=== PATIENT | male | born 1985 | race Two or more races ===

== ENCOUNTER 2022-05-26 00:56 | Emergency (ER) | payer OTHER ==
[~2022-05-26] VITALS: Ht 188 cm; Wt 99.8 kg
[2022-05-26 01:24] VITALS: BP 134/78
--- NOTE | 2022-05-26 01:24 | NUR ---
Patient discharged to home in stable condition. Written and verbal after care instructions given. Patient verbalizes understanding of instruction.
== END 2022-05-26 01:24 | disposition home or self-care (01) ==
LOC: ER 00:58
DX: F15.10 Other stimulant abuse, uncomplicated (principal)